=== PATIENT | male | born 2000 | race Caucasian/White ===

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

== ENCOUNTER 2019-10-13 20:02 | Observation (INO) | payer BC, OTHER ==
[2019-10-13] MEDS ORDERED: ONDANSETRON 4 MG/2 ML VIAL IVP STA (20:46)
[2019-10-13] MEDS ORDERED: KETOROLAC 30 MG/ML 1 ML VIAL IVP STA (20:46)
[2019-10-13] MEDS ORDERED: SODIUM CHLORIDE 0.9% 1,000 ML IV STA (20:46)
--- NOTE | 2019-10-13 21:09 | ED ---
Abdominal Pain HPI <Woody Isaac - Last Filed: 10/13/19 22:00> - General Source: patient, family Mode of arrival: ambulatory Limitations: no limitations <Blanca Laughlin - Last Filed: 10/13/19 22:35> - General Chief Complaint: Abdominal Pain Stated Complaint: LT flank pain, vomiting Time Seen by Provider: 10/13/19 20:18 - History of Present Illness Initial Comments: Patient is a 19-year-old male presenting to the emergency Department with complaints of left-sided abdominal pain started yesterday. Patient states he thought he woke up with a stomachache but as the day went on his pain became m ore and more severe. He did have an episode of vomiting yesterday, none today but continues to be nauseous. He denies history of abdominal surgeries. He denies history kidney stone. He states the pain is currently a 7/10. He describes it as very sharp, achy. He denies any recent fever, chills, diarrhea. He denies chest pain or shortness of breath. He has been having regular bowel movements, the last one was yesterday. He denies any urinary complaints such as dysuria or frequency. He has no pertinent past medical history and takes no medications. He has no further complaints at this time. Upon arrival to the ER, his vitals are stable. (Blanca Laughlin) - Related Data Home Medications Medication Instructions Recorded Confirmed No Known Home Medications 10/13/19 10/13/19 Allergies Allergy/AdvReac Type Severity Reaction Status Date / Time No Known Allergies Allergy Verified 10/13/19 22:25 Review of Systems ROS Other: All systems not noted in ROS Statement are negative. <Woody Isaac - Last Filed: 10/13/19 22:00> ROS Other: All systems not noted in ROS Statement are negative. <Blanca Laughlin - Last Filed: 10/13/19 22:35> ROS Statement: Those systems with pertinent positive or pertinent negative responses have been documented in the HPI. Past Medical History Past Medical History: No Reported History History of Any Multi-Drug Resistant Organisms: None Reported Past Surgical History: No Surgical Hx Reported Past Psychological History: No Psychological Hx Reported Smoking Status: Current every day smoker Past Alcohol Use History: None Reported, Occasional Past Drug Use History: Marijuana <Blanca Laughlin - Last Filed: 10/13/19 22:35> General Exam Limitations: no limitations <Blanca Laughlin - Last Filed: 10/13/19 22:35> - General Exam Comments Initial Comments: GENERAL: Well-appearing, well-nourished and in no acute distress but appears uncomfortable. HEAD: Atraumatic, normocephalic. EYES: Pupils equal round and reactive to light, extraocular movements intact, sclera anicteric, conjunctiva are normal. ENT: TMs normal, nares patent, oropharynx clear without exudates. Moist mucous membranes. NECK: Normal range of motion, supple without lymphadenopathy or JVD. LUNGS: Breath sounds clear to auscultation bilaterally and equal. No wheezes rales or rhonchi. HEART: Regular rate and rhythm without murmurs, rubs or gallops. ABDOMEN: Tender to palpation umbilical region, right lower quadrant, left lower quadrant, positive guarding.. Soft, normoactive bowel sounds. No masses appreciated. : Deferred EXTREMITIES: Normal range of motion, no pitting or edema. No clubbing or cyanosis. NEUROLOGICAL: Normal speech, normal gait. PSYCH: Normal mood, normal affect. SKIN: Warm, Dry, normal turgor, no rashes or lesions noted. (Blanca Laughlin) Course <Woody Isaac - Last Filed: 10/13/19 22:00> Vital Signs 10/13/19 10/13/19 20:09 21:12 Temperature 97.7 F Pulse Rate 61 82 Respiratory 20 16 Rate Blood Pressure 151/90 129/77 O2 Sat by Pulse 100 96 Oximetry - Reevaluation(s) Reevaluation #1: 10/13/19 22:00 PA supervision: I proceeded to evaluate the patient [id number] evaluation. He did have complaints of right lower quadrant pain he does have evidence on CT of acute appendicitis. Dr. Wynn was consulted. (Woody Isaac) Medical Decision Making - Lab Data Result diagrams: 10/13/19 20:46 10/13/19 20:46 <Woody Isaac - Last Filed: 10/13/19 22:00> - Lab Data Result diagrams: 10/13/19 20:46 10/13/19 20:46 <Blanca Laughlin - Last Filed: 10/13/19 22:35> - Medical Decision Making Patient is a 19-year-old male here for abdominal pain started yesterday. He is tender on the entire lower abdomen, umbilical area. No history of abdominal surgeries or kidney stones. No fevers. (Blanca Laughlin) - Lab Data Lab Results 10/13/19 10/13/19 10/13/19 Range/Units 20:46 20:46 20:46 WBC 12.7 H (3.8-10.6) k/uL RBC 5.21 (4.30-5.90) m/uL Hgb 14.8 (13.0-17.5) gm/dL Hct 45.0 (39.0-53.0) % MCV 86.4 (80.0-100.0) fL MCH 28.5 (25.0-35.0) pg MCHC 32.9 (31.0-37.0) g/dL RDW 12.5 (11.5-15.5) % Plt Count 276 (150-450) k/uL Neutrophils % 79 % Lymphocytes % 15 % Monocytes % 4 % Eosinophils % 1 % Basophils % 0 % Neutrophils # 10.0 H (1.3-7.7) k/uL Lymphocytes # 1.9 (1.0-4.8) k/uL Monocytes # 0.5 (0-1.0) k/uL Eosinophils # 0.1 (0-0.7) k/uL Basophils # 0.0 (0-0.2) k/uL Sodium 137 (137-145) mmol/L Potassium 3.7 (3.5-5.1) mmol/L Chloride 102 (98-107) mmol/L Carbon Dioxide 23 (22-30) mmol/L Anion Gap 12 mmol/L BUN 8 L (9-20) mg/dL Creatinine 0.66 (0.66-1.25) mg/dL Est GFR (CKD-EPI)AfAm >90 (>60 ml/min/1.73 sqM) Est GFR (CKD-EPI)NonAf >90 (>60 ml/min/1.73 sqM) Glucose 112 H (74-99) mg/dL Plasma Lactic Acid Min (0.7-2.0) mmol/L Calcium 10.4 H (8.4-10.2) mg/dL Total Bilirubin 1.0 (0.2-1.3) mg/dL AST 31 (17-59) U/L ALT 15 (4-49) U/L Alkaline Phosphatase 86 (38-126) U/L Total Protein 8.0 (6.3-8.2) g/dL Albumin 5.0 (3.5-5.0) g/dL Amylase 36 (30-110) U/L Lipase 74 (23-300) U/L Urine Color Light Yellow Urine Appearance Clear (Clear) Urine pH 8.0 (5.0-8.0) Ur Specific Randolph 1.003 (1.001-1.035) Urine Protein Negative (Negative) Urine Glucose (UA) Negative (Negative) Urine Ketones 1+ H (Negative) Urine Blood Negative (Negative) Urine Nitrite Negative (Negative) Urine Bilirubin Negative (Negative) Urine Urobilinogen <2.0 (<2.0) mg/dL Ur Leukocyte Esterase Negative (Negative) 10/13/19 Range/Units 20:46 WBC (3.8-10.6) k/uL RBC (4.30-5.90) m/uL Hgb (13.0-17.5) gm/dL Hct (39.0-53.0) % MCV (80.0-100.0) fL MCH (25.0-35.0) pg MCHC (31.0-37.0) g/dL RDW (11.5-15.5) % Plt Count (150-450) k/uL Neutrophils % % Lymphocytes % % Monocytes % % Eosinophils % % Basophils % % Neutrophils # (1.3-7.7) k/uL Lymphocytes # (1.0-4.8) k/uL Monocytes # (0-1.0) k/uL Eosinophils # (0-0.7) k/uL Basophils # (0-0.2) k/uL Sodium (137-145) mmol/L Potassium (3.5-5.1) mmol/L Chloride (98-107) mmol/L Carbon Dioxide (22-30) mmol/L Anion Gap mmol/L BUN (9-20) mg/dL Creatinine (0.66-1.25) mg/dL Est GFR (CKD-EPI)AfAm (>60 ml/min/1.73 sqM) Est GFR (CKD-EPI)NonAf (>60 ml/min/1.73 sqM) Glucose (74-99) mg/dL Plasma Lactic Acid Min 1.7 (0.7-2.0) mmol/L Calcium (8.4-10.2) mg/dL Total Bilirubin (0.2-1.3) mg/dL AST (17-59) U/L ALT (4-49) U/L Alkaline Phosphatase (38-126) U/L Total Protein (6.3-8.2) g/dL Albumin (3.5-5.0) g/dL Amylase (30-110) U/L Lipase (23-300) U/L Urine Color Urine Appearance (Clear) Urine pH (5.0-8.0) Ur Specific Randolph (1.001-1.035) Urine Protein (Negative) Urine Glucose (UA) (Negative) Urine Ketones (Negative) Urine Blood (Negative) Urine Nitrite (Negative) Urine Bilirubin (Negative) Urine Urobilinogen (<2.0) mg/dL Ur Leukocyte Esterase (Negative) Disposition <Woody Isaac - Last Filed: 10/13/19 22:00> Decision Date: 10/13/19 Decision Time: 22:35 <Blanca Laughlin - Last Filed: 10/13/19 22:35> Clinical Impression: Acute appendicitis Disposition: ADMITTED IP TO THIS [facility] Condition: Stable Referrals: Brook Lombardo DO [Primary Care Provider] - 1-2 days
[2019-10-13 21:26] LABS: Basophils % (A) 0 %; Eosinophils # (A) 0.1 k/uL (0-0.7); Eosinophils % (A) 1 %; HGB 14.8 gm/dL (13.0-17.5); Lymphocytes # (A) 1.9 k/uL (1.0-4.8); Lymphocytes % (A) 15 %; MCH 28.5 pg (25.0-35.0); MCHC 32.9 g/dL (31.0-37.0); MCV 86.4 fL (80.0-100.0); Mean Platelet Volume 7.7; Monocytes # (A) 0.5 k/uL (0-1.0); Monocytes % (A) 4 %; Neutrophils % (A) 79 %; Platelet Count 276 k/uL (150-450); RBC 5.21 m/uL (4.30-5.90); RDW 12.5 % (11.5-15.5); WBC 12.7 k/uL (3.8-10.6)
[2019-10-13 21:27] LABS: Appearance,Urine Clear (Clear); Bilirubin,Urine Negative (Negative); Blood,Urine Negative (Negative); Color,Urine Light Yellow; Glucose,Urine (UA) Negative (Negative); Ketones,Urine 1+ (Negative); Leukocyte Esterase,Urine Negative (Negative); Nitrite,Urine Negative (Negative); Protein,Urine Negative (Negative); Specific Gravity,Urine 1.003 (1.001-1.035); Urobilinogen,Urine <2.0 mg/dL (<2.0)
[2019-10-13 21:32] LABS: ALT 15 U/L (4-49); AST 31 U/L (17-59); African American GFR (CKD) >90 (>60 ml/min/1.73 sqM); Alkaline Phosphatase 86 U/L (38-126); Amylase 36 U/L (30-110); Anion Gap 12 mmol/L; Blood Urea Nitrogen 8 mg/dL (9-20); Calcium 10.4 mg/dL (8.4-10.2); Carbon Dioxide 23 mmol/L (22-30); Chloride 102 mmol/L (98-107); Glucose 112 mg/dL (74-99); Non-African American GFR(CKD) >90 (>60 ml/min/1.73 sqM); Potassium 3.7 mmol/L (3.5-5.1); Sodium 137 mmol/L (137-145)
--- NOTE | 2019-10-13 21:34 | CT ---
EXAMINATION TYPE: CT abdomen pelvis w con DATE OF EXAM: 10/13/2019 COMPARISON: None HISTORY: Left sided abdominal pain and vomiting. CT DLP: 585.6 mGycm CONTRAST: CT scan of the abdomen and pelvis is performed without Oral Contrast and with IV Contrast, patient in jected with 100ml mL of Isovue 300. FINDINGS: LUNG BASES-: No visible nodule. No infiltrate. LIVER/GB: No calcified gallstones. No space occupying hepatic lesion. Biliary tree is of normal ca liber. PANCREAS: No inflammation. No distinct mass. SPLEEN: No splenic enlargement. No lesion seen. ADRENALS: No nodule. No thickening. KIDNEYS/BLADDER: No hydronephrosis. No nephrolithiasis. No distinct renal mass. Urinary bladder g rossly unremarkable. BOWEL: The appendix is dilated at 1.8 cm. Mild surrounding inflammatory change noted. Appendicolith i s noted measuring 1 cm at the origin of the appendix. Moderate free fluid within the pelvis. Normal bowel caliber. No inflammation. GENITAL ORGANS: No gross abnormality. LYMPH NODES: No greater than 1cm abdominal or pelvic lymph nodes are appreciated. AORTA: No significant abnormality. OSSEOUS STRUCTURES: No significant abnormality is seen. OTHER: No significant additional abnormality is seen. IMPRESSION: 1. Dilated appendix with appendicolith and mild inflammatory change suggest acute appendicitis. Free fluid noted.
[2019-10-13] MEDS ORDERED: MORPHINE SULFATE 4 MG/ML SYRINGE IV PRN (22:33)
[2019-10-13] MEDS ORDERED: NALOXONE 0.4 MG/ML 1 ML VIAL IV PRN (22:33)
[2019-10-13] MEDS ORDERED: KETOROLAC 30 MG/ML 1 ML VIAL IVP PRN (22:33)
[2019-10-13] MEDS ORDERED: ACETAMINOPHEN TAB 325 MG TAB PO PRN (22:33)
[2019-10-13] MEDS ORDERED: ONDANSETRON 4 MG/2 ML VIAL IVP PRN (22:33)
[2019-10-13] MEDS ORDERED: PIPERACILLIN-TAZOBACTAM 3.375 GM in SODIUM CHLORIDE 0.9% 100 ML IVPB STA (22:34)
[2019-10-13] MEDS: SODIUM CHLORIDE 0.9% 1,000 ML IV SCH (22:55)
--- NOTE | 2019-10-14 11:33 | P.GSHP ---
History of Present Illness H&P Date: 10/14/19 CHIEF COMPLAINT: Right lower quadrant abdominal pain with appendicitis for over 2 days. HISTORY OF PRESENT ILLNESS: The patient is a previously healthy 19-year-old male who presents with over 2 day history of periumbilical with right lower quadrant abdominal pain that is crampy dull ache in nature. He has abdominal pain was due to food poisoning. No reports of prior abdominal pain. He states the intensity of the pain is tolerable. CT abdomen and pelvis consistent with dilated appendix suspicious for appendicitis hence general surgery admission. PAST MEDICAL HISTORY: See list and reviewed PAST SURGICAL HISTORY: See list and reviewed CURRENT MEDICATIONS: See list and reviewed ALLERGIES: See list and reviewed SOCIAL HISTORY: See list and reviewed FAMILY HISTORY: No Crohns disease and ulcerative colitis. REVIEW OF ORGAN SYSTEMS: CONSTITUTIONAL: No fever, no chills. HEENT: Denies any trouble with vision, hearing or nosebleeds. No difficulty swallowing. LYMPHATIC: The patient denies any lumps and bumps around the neck. ENDOCRINE: Denies any thyroid disorders. Denies any blood sugar glucose intolerance. RESPIRATORY: Denies shortness of breath including chronic cough. CARDIOVASCULAR: Denies history of chest pain with exertion. GASTROINTESTINAL: Denies regurgitation of bile at night as well as intermittent nausea. No blood in stools. GENITOURINARY: Denies any blood in urine or increased urinary frequency. MUSCULOSKELETAL: Denies current joint arthritis. NEUROLOGIC: Denies any numbness or tingling along the distal extremities. No se izure disorders or headaches. PSYCHIATRIC: Denies any depression or suicidal ideation. HEMATOLOGIC: Denies any abnormal bleeding or bruising. PHYSICAL EXAMINATION: GENERAL: A 19-year-old male in no acute distress. Pleasant. HEENT: No sclera icterus. Extraocular movements grossly intact. Moist buccal mucosa. Head is atraumatic, normocephalic. Hears conversational speech. No nasal drainage. NECK: Supple without lymphadenopathy. No JV distention. CHEST: Non-labored respirations and equal bilateral excursions. CARDIOVASCULAR: Regular rate and rhythm. Palpable 2+ radial pulses. ABDOMEN: Soft, tender at the right lower quadrant without guarding. MUSCULOSKELETAL: No clubbing, cyanosis or edema. NEUROLOGIC: No focal or lateralizing signs. PSYCH: Appropriate affect. Alert and oriented to person, place and time. SKIN: Well perfused. Good skin turgor. LABS: Reviewed. White blood cell count elevated over 12,000. STUDIES: CT of the abdomen and pelvis independently reviewed with moderately dilated appendix over 10 mm with appendicolith ASSESSMENT: 1. Right lower quadrant pain. 2. Appendicitis 3. Leukocytosis. PLAN: 1. I have discussed benefits and risks of laparoscopic appendectomy. 2. Bilateral SCDs. 3. Antibiotics intravenous Past Medical History Past Medical History: No Reported History History of Any Multi-Drug Resistant Organisms: None Reported Past Surgical History: No Surgical Hx Reported Past Psychological History: No Psychological Hx Reported Smoking Status: Current every day smoker Past Alcohol Use History: None Reported, Occasional Past Drug Use History: Marijuana Medications and Allergies Home Medications Medication Instructions Recorded Confirmed Type Acetaminophen Tab [Tylenol Tab] 650 mg PO Q4H PRN #30 tablet 10/14/19 Rx Ibuprofen [Motrin] 600 mg PO Q8HR PRN #30 tab 10/14/19 Rx Allergies Allergy/AdvReac Type Severity Reaction Status Date / Time No Known Allergies Allergy Verified 10/13/19 22:25 Surgical - Exam Vital Signs Temp Pulse Resp BP Pulse Ox 97.7 F 61 20 151/90 100 10/13/19 20:09 10/13/19 20:09 10/13/19 20:09 10/13/19 20:09 10/13/19 20:09 Results - Labs 10/13/19 20:46 10/13/19 20:46 Abnormal Lab Results - Last 24 Hours (Table) 10/13/19 10/13/19 10/13/19 Range/Units 20:46 20:46 20:46 WBC 12.7 H (3.8-10.6) k/uL Neutrophils # 10.0 H (1.3-7.7) k/uL BUN 8 L (9-20) mg/dL Glucose 112 H (74-99) mg/dL Calcium 10.4 H (8.4-10.2) mg/dL Urine Ketones 1+ H (Negative) Diabetes panel 10/13/19 Range/Units 20:46 Sodium 137 (137-145) mmol/L Potassium 3.7 (3.5-5.1) mmol/L Chloride 102 (98-107) mmol/L Carbon Dioxide 23 (22-30) mmol/L BUN 8 L (9-20) mg/dL Creatinine 0.66 (0.66-1.25) mg/dL Glucose 112 H (74-99) mg/dL Calcium 10.4 H (8.4-10.2) mg/dL AST 31 (17-59) U/L ALT 15 (4-49) U/L Alkaline Phosphatase 86 (38-126) U/L Total Protein 8.0 (6.3-8.2) g/dL Albumin 5.0 (3.5-5.0) g/dL Calcium panel 10/13/19 Range/Units 20:46 Calcium 10.4 H (8.4-10.2) mg/dL Albumin 5.0 (3.5-5.0) g/dL Pituitary panel 10/13/19 Range/Units 20:46 Sodium 137 (137-145) mmol/L Potassium 3.7 (3.5-5.1) mmol/L Chloride 102 (98-107) mmol/L Carbon Dioxide 23 (22-30) mmol/L BUN 8 L (9-20) mg/dL Creatinine 0.66 (0.66-1.25) mg/dL Glucose 112 H (74-99) mg/dL Calcium 10.4 H (8.4-10.2) mg/dL Adrenal panel 10/13/19 Range/Units 20:46 Sodium 137 (137-145) mmol/L Potassium 3.7 (3.5-5.1) mmol/L Chloride 102 (98-107) mmol/L Carbon Dioxide 23 (22-30) mmol/L BUN 8 L (9-20) mg/dL Creatinine 0.66 (0.66-1.25) mg/dL Glucose 112 H (74-99) mg/dL Calcium 10.4 H (8.4-10.2) mg/dL Total Bilirubin 1.0 (0.2-1.3) mg/dL AST 31 (17-59) U/L ALT 15 (4-49) U/L Alkaline Phosphatase 86 (38-126) U/L Total Protein 8.0 (6.3-8.2) g/dL Albumin 5.0 (3.5-5.0) g/dL Assessment and Plan (1) Appendicolith Current Visit: Yes Status: Acute Code(s): K38.9 - DISEASE OF APPENDIX, UNSPECIFIED SNOMED Code(s): 80068721 (2) Tobacco use Current Visit: Yes Status: Acute Code(s): Z72.0 - TOBACCO USE SNOMED Code(s): 177475252 (3) Acute appendicitis Current Visit: Yes Status: Acute Code(s): K35.80 - UNSPECIFIED ACUTE APPENDICITIS SNOMED Code(s): 93489845
[2019-10-14] MEDS: PIPERACILLIN-TAZOBACTAM 3.375 GM in SODIUM CHLORIDE 0.9% 100 ML IVPB SCH ×2 (12:05→20:14)
[2019-10-14] MEDS ORDERED: IV FLUID CONTINUATION 1,000 ML IV ONE (12:33)
[2019-10-14] MEDS ORDERED: PROPOFOL 10 MG/ML 20 ML VIAL IV ONE (13:20)
[2019-10-14] MEDS ORDERED: ROCURONIUM BROMIDE 10 MG/ML 5 ML VIAL IV ONE (13:20)
[2019-10-14] MEDS ORDERED: GLYCOPYRROLATE 0.2 MG/ML 2 ML VIAL ONE (13:20)
[2019-10-14] MEDS ORDERED: fentaNYL (PF) 50 MCG/ML 2 ML AMP ONE (13:20)
[2019-10-14] MEDS ORDERED: NEOSTIGMINE 1 MG/ML 10 ML VIAL ONE (13:20)
[2019-10-14] MEDS ORDERED: SUCCINYLCHOLINE CHLORIDE 100 MG/5 ML SYR IV ONE (13:20)
[2019-10-14] MEDS ORDERED: LIDOCAINE 1% INJ 10MG/ML (20 ML MDV) ONE (13:20)
[2019-10-14] MEDS ORDERED: MIDAZOLAM 2 MG/2 ML VIAL ONE (13:20)
[2019-10-14] MEDS ORDERED: BUPIVACAIN-EPI 0.25%-1:200,000 30 ML VIAL SQ ONE (13:52)
[2019-10-14] MEDS ORDERED: LACTATED RINGERS 1,000 ML IV ONE (13:54)
[2019-10-14] MEDS ORDERED: SODIUM CHLORIDE 0.9% 50 ML with ceFAZolin 1,000 MG IV ONE ×2 (13:57)
--- NOTE | 2019-10-14 14:30 | P.OP ---
Date of Procedure: 10/14/19 Description of Procedure: SURGEON: JERAD KING MD VAN DRIVER: None. PREOPERATIVE DIAGNOSES: 1. Periumbilical pain 2. Acute appendicitis. 3. Abnormal computed tomography scan for appendicitis POSTOPERATIVE DIAGNOSES: 1. Periumbilical pain 2. Acute appendicitis. 3. Abnormal computed tomography scan for appendicitis 4. Acute appendicitis with periappendicitis without rupture 5. Abdominal ascites PROCEDURES PERFORMED: 1. Laparoscopic appendectomy. ANESTHESIA: General with local ESTIMATED BLOOD LOSS: 10 mL. SPECIMENS REMOVED: Appendix. COMPLICATIONS: None. Condition: stable Disposition: floor OPERATIVE FINDINGS: 1. Acute appendicitis with periappendicitis involving tip and body of appendix dilated appendix without rupture. 2. Unremarkable small bowel and terminal ileum. 3. The colon was unremarkable 4. No inguinal hernias INDICATIONS: The patient is a 19-year-old male who presents with acute appendicitis. Benefits and risks, including possibility of open technique were described at length. Informed consent was obtained. DESCRIPTION OR PROCEDURE: Patient was brought to the operating room, laid in supine position. After general induction, the abdomen was prepped and draped in standard sterile fashion. Prior to incision, a timeout protocol was confirmed with surgical team regarding patient's name including procedure to be performed. Preoperative medications were given intraoperatively. Additionally, bilateral SCDs were placed. A left upper quadrant incision was made after localizing the skin with anesthetic. A 0 degree 5 mm laparoscopic trocar entry was performed and entered into the peritoneal cavity. The abdomen was insufflated to 15 mmHg of pressure, which he tolerated well. Diagnostic laparoscopy demonstrated no injury to bowel, viscera or mesentery. A 5 mm port was placed just above the pubis. A separate 12 mm port was placed at the left lateral abdominal wall under direct visualization. The patient was placed in Trendelenburg position with the right side up. A systematic view within the abdominal cavity was started with the small bowel which was unremarkable. The base of the cecum was without inflammation. The entire appendix was dilated consistent with acute appendicitis without rupture. A 45 mm Endo JASS echelon stapler was fired using a white load. Staple line was hemostatic. The specimen was removed through the 12 mm trocar. The trocar site was reapproximated using 0 Vicryl in [place]. All instruments and pneumoperitoneum were evacuated from the abdominal cavity. Local anesthetic was infiltrated in all wounds for postop analgesia. Liquid glue was applied to the skin after reapproximating the incisions with 4-0 Monocryl as described. At the end of the procedure, needle, sponge, and instrument count was verified correct by assembler surgical garment. The patient had tolerated the procedure well, was taken to the postanesthesia care unit in stable condition.
[2019-10-14] MEDS ORDERED: HYDROmorphone 0.5 MG/0.5 ML SYRINGE IVP ONE ×2 (14:43→15:00)
[2019-10-14] MEDS ORDERED: ONDANSETRON 4 MG/2 ML VIAL IVP ONE (14:45)
[2019-10-14] MEDS ORDERED: METOCLOPRAMIDE 5 MG/ML 2 ML VIAL IVP ONE (14:55)
[2019-10-14] MEDS ORDERED: PROMETHAZINE INJ 25 MG/ML 1 ML VIAL IVPB ONE (15:13)
[2019-10-14] MEDS: SODIUM CHLORIDE 0.9% 1,000 ML IV SCH ×2 (15:15→23:39)
[2019-10-14] MEDS: ACETAMINOPHEN TAB 325 MG TAB PO SCH ×2 (16:08→21:11)
[2019-10-14 20:45] VITALS: RESP 16
[2019-10-14] MEDS ORDERED: SODIUM CHLORIDE 0.9% 1,000 ML IV ONE (22:14)
[2019-10-14] MEDS: KETOROLAC 30 MG/ML 1 ML VIAL IVP SCH (22:34)
[2019-10-15] MEDS: KETOROLAC 30 MG/ML 1 ML VIAL IVP SCH ×2 (01:08→06:05)
[2019-10-15] MEDS: ACETAMINOPHEN TAB 500 MG TAB PO SCH ×2 (01:08→08:47)
[2019-10-15] MEDS: PIPERACILLIN-TAZOBACTAM 3.375 GM in SODIUM CHLORIDE 0.9% 100 ML IVPB SCH (04:40)
[2019-10-15 05:01] VITALS: BP 104/62; PULSE 76; TEMP 98.2
[2019-10-15 06:37] LABS: Basophils % (A) 0 %; Eosinophils # (A) 0.1 k/uL (0-0.7); Eosinophils % (A) 2 %; HCT 37.8 % (39.0-53.0); HGB 12.4 gm/dL (13.0-17.5); Lymphocytes # (A) 2.3 k/uL (1.0-4.8); Lymphocytes % (A) 29 %; MCH 28.9 pg (25.0-35.0); MCHC 32.7 g/dL (31.0-37.0); MCV 88.5 fL (80.0-100.0); Mean Platelet Volume 7.6; Monocytes # (A) 0.6 k/uL (0-1.0); Monocytes % (A) 8 %; Neutrophils # (A) 4.5 k/uL (1.3-7.7); Neutrophils % (A) 58 %; Platelet Count 198 k/uL (150-450); RBC 4.28 m/uL (4.30-5.90); RDW 12.7 % (11.5-15.5); WBC 7.7 k/uL (3.8-10.6)
[2019-10-15 06:40] LABS: African American GFR (CKD) >90 (>60 ml/min/1.73 sqM); Anion Gap 5 mmol/L; Blood Urea Nitrogen 5 mg/dL (9-20); Calcium 8.5 mg/dL (8.4-10.2); Carbon Dioxide 25 mmol/L (22-30); Chloride 106 mmol/L (98-107); Glucose 78 mg/dL (74-99); Non-African American GFR(CKD) >90 (>60 ml/min/1.73 sqM); Sodium 136 mmol/L (137-145)
[2019-10-15] MEDS: SODIUM CHLORIDE 0.9% 1,000 ML IV SCH (08:50)
[2019-10-15 10:52] VITALS: BMI 18.8
--- NOTE | 2019-10-15 13:17 | P.DS ---
Providers Date of admission: 10/13/19 22:00 Expected date of discharge: 10/15/19 Attending physician: Kendy Martinez Primary care physician: Brook Lombardo - Discharge Diagnosis(es) (1) Appendicolith Status: Acute (2) Tobacco use Status: Acute (3) Acute appendicitis Status: Acute Hospital Course: POSTOPERATIVE DIAGNOSES: 1. Periumbilical pain 2. Acute appendicitis. 3. Abnormal computed tomography scan for appendicitis 4. Acute appendicitis with periappendicitis without rupture 5. Abdominal ascites COURSE: The patient is a 19-year-old male who presented with acute appendicitis. He underwent an uncomplicated appendectomy with findings of nonruptured appendicitis. Postoperatively, he was observed overnight for pain management. Prior to discharge, discharge instructions including no bathtub soaks and lifting for 2 weeks described. Pain medication with ibuprofen and Tylenol inc luding icing was also reviewed. Patient tolerated diet and was hemodynamically stable prior to discharge Procedures: PROCEDURES PERFORMED: 1. Laparoscopic appendectomy. ANESTHESIA: General with local ESTIMATED BLOOD LOSS: 10 mL. SPECIMENS REMOVED: Appendix. COMPLICATIONS: None. Condition: stable Disposition: floor OPERATIVE FINDINGS: 1. Acute appendicitis with periappendicitis involving tip and body of appendix dilated appendix without rupture. 2. Unremarkable small bowel and terminal ileum. 3. The colon was unremarkable 4. No inguinal hernias Patient Condition at Discharge: Good Plan - Discharge Summary Discharge Rx Participant: No New Discharge Prescriptions: New Ibuprofen [Motrin] 600 mg PO Q8HR PRN #30 tab PRN Reason: Pain Acetaminophen Tab [Tylenol Tab] 650 mg PO Q4H PRN #30 tablet PRN Reason: Pain Discharge Medication List Acetaminophen Tab [Tylenol Tab] 650 mg PO Q4H PRN #30 tablet 10/14/19 [Rx] Ibuprofen [Motrin] 600 mg PO Q8HR PRN #30 tab 10/14/19 [Rx] Follow up Appointment(s)/Referral(s): Brook Lombardo DO [Primary Care Provider] - 1-2 days Kendy Martinez MD [STAFF PHYSICIAN] - 10/18/19 Patient Instructions/Handouts: Acetaminophen/Codeine (By mouth), Ibuprofen (By mouth), Laparoscopic Appendectomy (GEN) Activity/Diet/Wound Care/Special Instructions: No lifting over 10 pounds in 2 weeks until October 27August shower. No bath tub soaks for two weeks until October 27 Diet as tolerated. No driving while on narcotics. Use Tylenol or Aleve scheduled for the next 24-48 hours for best pain relief. Use ice along incisions for the today to prevent swelling. Discharge Disposition: HOME SELF-CARE
== END 2019-10-15 14:00 | disposition home or self-care (01) ==
LOC: EC 20:02 → 5NMEDONC 22:00
PROVIDERS: ADMIT Surgery Plastic and Reconstructive Surgery; ATTEND Surgery Plastic and Reconstructive Surgery
DX: K35.80 Unspecified acute appendicitis (principal); K38.1 Appendicular concretions; R18.8 Other ascites; F17.290 Nicotine dependence, other tobacco product, uncomplicated
CPT/HCPCS: 96361; 96374; 96375; 99285; 36415; 88304; 80053; 80048; 82150; 83605; 83690; 85025 ×2; 81003; 87040; 74177; 44970; G0378 ×3; J2543 ×3; J2250; J2270; J2550; J2710; J2765; J2405 ×2; J0690; J2001; J3010; J1885 ×3; J0330; J2704; J1170; Q9967

== ENCOUNTER → 2020-09-13 | Outpatient (CLI) | payer BC ==
--- NOTE | 2020-09-13 15:57 | XR ---
EXAMINATION TYPE: XR chest 2V DATE OF EXAM: 09/13/2020 COMPARISON: NONE HISTORY: Lump in the right lower rib cage. TECHNIQUE: Frontal and lateral views of the chest are obtained. FINDINGS: Heart size is within normal limits. Trachea is midline. No focal consolidation, pneumothor ax or pleural effusion. Osseous structures are unremarkable. IMPRESSION: 1. No acute pulmonary disease. 2. Due to palpable lump in the lower rib cage, an ultrasound or CT may be helpful for further evaluat ion if clinically indicated.
== END | disposition home or self-care (01) ==
LOC: RADXRMAIN 15:01
PROVIDERS: ATTEND Physician Assistant Medical
DX: R22.2 Localized swelling, mass and lump, trunk (principal)
CPT/HCPCS: 71046

== ENCOUNTER 2022-01-13 20:21 | Emergency (ER) | payer BC ==
[2022-01-13 20:47] VITALS: TEMP 97.5
[2022-01-13] MEDS ORDERED: ONDANSETRON 4 MG TAB PO STA (21:14)
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
[2022-01-13 22:57] VITALS: BP 123/66; PULSE 86; RESP 14
== END 2022-01-13 22:57 | disposition home or self-care (01) ==
LOC: EC 20:21
DX: S09.90XA Unspecified injury of head, initial encounter (principal); F07.81 Postconcussional syndrome; F17.290 Nicotine dependence, other tobacco product, uncomplicated; F12.90 Cannabis use, unspecified, uncomplicated; Z79.899 Other long term (current) drug therapy; X58.XXXA Exposure to other specified factors, initial encounter
CPT/HCPCS: 70450; 99284

== ENCOUNTER → 2024-09-18 | Outpatient (CLI) | payer BC ==
--- NOTE | 2024-09-22 21:57 | MR ---
EXAMINATION TYPE: MR brain/orbits wo/w con DATE OF EXAM: 09/18/2024 1:42 PM COMPARISON: None. 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 Stud y is performed within 24 hours of arrival to the hospital.Multiplanar, multiecho imaging on a 3.0 Sofia la magnet is performed through the knee. IV Contrast: 7ml mL Gadobutrol (None, if empty) FINDINGS: The craniovertebral junction is normal. The pituitary is normal. Diffusion-weighted imaging is performed. There is some hyperintense signal adjacent to the posterior portion left lateral ventricle on the diffusion-weighted imaging. Small focus of ischemia may be pre sent. Correlate with symptoms. Series 303 image 168. This area is hyperintense on the T2-weighted seq uences. Additional areas of T2 and inversion recovery weighted sequence hyperintensities are present. Ventricles and sulci are appropriate for the patient age. Left septal deviation as noted. Orbits: Globes are symmetrical. Extraocular muscles are normal. Lacrimal glands appear unremarkable. Optic nerves appear normal. Optic chiasm as visualized is normal. No orbital enhancement following contrast is evident. On postcontrast imaging there is a small ring-enhancing lesion in the left posterior centrum semioval e. This appears to be along the subcortical margin and measures 0.9 cm. Series 04/13/2001, image 37. An additional area of enhancement is within the subcortical margin left occipital lobe measuring 0.6 cm . There is a small area of enhancement within the trilobar region on the left. Series 04/13/2000 image 47 . Along the posterior right occipital lobe gyrus appears to be some enhancement better visualized on th e sagittal plain images, series 04/13/2000 image 99. There does not appear to be significant vasogenic edema adjacent. IMPRESSION: 1. Ring-enhancing lesions suspicious for neoplasm without significant vasogenic edema adjacent within the margins between the mendez and white matter left parietal and occipital lobes discussed above. [facility], , 09/22/2024 9:54 PM
== END | disposition home or self-care (01) ==
LOC: RADMRIMAIN 12:49
PROVIDERS: ATTEND Family Medicine
DX: H49.00 Third [oculomotor] nerve palsy, unspecified eye (principal); H53.2 Diplopia; H02.402 Unspecified ptosis of left eyelid; G93.89 Other specified disorders of brain
CPT/HCPCS: 70543; 70553; A9585